=== PATIENT | male | born 1960 | race Caucasian/White ===

== ENCOUNTER 2016-07-04 08:20 | Day surgery (SDC) | payer BC ==
[~2016-07-04 08:20] MED LIST: IV START KIT ONE; LACTATED RINGERS 1,000 ML IV SCH; LACTATED RINGERS 1,000 ML ONE
[2016-07-04] MEDS ORDERED: PROPOFOL 20 ML IV ONE (08:55)
--- NOTE | 2016-07-06 10:16 | SURGPATH ---
[facility] [address] [place] [id number] Patient Name: DANIEL PARSONS MR#: [id number] : 1960 Gender: M Specimen #: [id number] Collected: 07/04/2016 Received: 07/05/2016 Reported: 07/06/2016 Submitting Phys: TOMAS PUENTE Copy To Phys: [facility] BOB CORCORAN Clinical History / Pre-Operative Diagnosis: CHRONIC CONSTIPATION; SCREENING Specimen Source / Surgical Procedure Performed: RECTAL POLYP AT 6 CM Interpretation: RECTUM, POLYP AT 6 CM, BIOPSY: - HYPERPLASTIC POLYP Electronically Signed Out Janessa Llanes M.D. Gross Description: The specimen is received in a formalin filled container labeled with the patient's name and "rectal polyp at 6 cm". A polypoid pink-gabriel biopsy is 0.4 x 0.4 x 0.3 cm. Totally embedded in one cassette. Sohail Siegel, P.AEnma Microscopic Description: Sections show fragments of hyperplastic colonic mucosa without dysplasia. 1: [id number] K62.1
== END 2016-07-04 10:45 | disposition home or self-care (01) ==
LOC: SDC 08:20
PROVIDERS: ATTEND Internal Medicine Gastroenterology
PROC: 0DBP8ZX Excision of Rectum, Via Natural or Artificial Opening Endoscopic, Diagnostic (ICD-10-PCS; principal; 2016-07-04)
DX: Z12.11 Encounter for screening for malignant neoplasm of colon (principal); Z86.010 Personal history of colon polyps; K62.1 Rectal polyp; K57.30 Diverticulosis of large intestine without perforation or abscess without bleeding; K59.00 Constipation, unspecified; I10 Essential (primary) hypertension; E78.5 Hyperlipidemia, unspecified; N40.0 Benign prostatic hyperplasia without lower urinary tract symptoms
CPT/HCPCS: 45385; J7120